=== PATIENT | female | born 1950 | race Caucasian/White ===

== ENCOUNTER 2016-09-05 04:46 | Emergency (ER) | payer MEDICARE, OTHER ==
[2016-09-05 05:04] VITALS: TEMP 99.2
[2016-09-05] MEDS ORDERED: ONDANSETRON INJ 4 MG/2 ML VIAL IV ONE (05:16)
[2016-09-05] MEDS ORDERED: SODIUM CHLORIDE 0.9% 1000ML 1,000 ML IVS ONE ×2 (05:16→06:47)
--- NOTE | 2016-09-05 05:20 | ED.PDOC ---
History of Present Illness - General Information Source: patient, RN notes reviewed, Vital Signs reviewed Exam Limitations: no limitations - History of Present Illness Initial Comments: Patient comes in via private vehicle w/ c/o N/V/D and R flank pain X 2 days. She is concerned she is getting dehydrated and may have a UTI. Fever to 100.2 at home. No chills. No abdominal pain. + dysuria. Tries to eat and drink but can 't keep anything down. Abdominal Pain Onset Location: other - Denies Timing/Duration: days - 2, constant Improving Factors: nothing Worsening Factors: eating Associated Symptoms: back pain - R flank, diarrhea, fever/chills, fatigue, nausea/vomiting <Mee Macdonald - Last Filed: 09/05/16 06:49> <Wm Bosch - Last Filed: 09/05/16 07:46> - General Chief Complaint: GI Problem Stated Complaint: n/v x2 days Time Seen by Provider: 09/05/16 05:09 Review of Systems - Review of Systems Constitutional: States: fever, malaise. Denies: chills EENTM: States: no symptoms reported Respiratory: States: no symptoms reported Cardiology: States: no symptoms reported Gastrointestinal/Abdominal: States: see HPI, diarrhea, nausea, vomiting. Denies : abdominal pain Genitourinary: States: see HPI, dysuria Musculoskeletal: States: back pain - R flank Skin: States: no symptoms reported Neurological: States: no symptoms reported All other Systems: No Change from Baseline <Mee Macdonald - Last Filed: 09/05/16 06:49> Past Medical History (General) - Patient Medical History Hx Dementia: No Hx Asthma: Yes Hx Cardiac Disorders: No Hx Diabetes: No Hx Gastroesophageal Reflux: Yes - IBS Surgical History: other - Vaccination History Hx Tetanus, Diphtheria Vaccination: No Hx Influenza Vaccination: No Hx Pneumococcal Vaccination: No - Social History Hx Tobacco Use: No Hx Depression: No <Mee Macdonald - Last Filed: 09/05/16 06:49> Family Medical History - Family History Father Living Status: Hx Family Hypertension: Yes <Mee Macdonald - Last Filed: 09/05/16 06:49> Physical Exam - Physical Exam General Appearance: Alert, Comfortable, No apparent distress, Well Developed, Well Groomed, Well Nourished Eyes, Ears, Nose, Throat Exam: other - dry mucus membranes Neck: non-tender, full range of motion, supple, normal inspection Respiratory: lungs clear, normal breath sounds, no respiratory distress, no accessory muscle use Cardiovascular/Chest: regular rate, rhythm, no edema, no gallop, no JVD, no murmur Gastrointestinal/Abdominal: soft, no organomegaly, no pulsatile mass, abnormal bowel sounds - hypoactive, tenderness - mild, generalized w/o guarding or rebound Extremity: normal range of motion, normal inspection Neurologic: alert, normal mood/affect, oriented x 3 Skin Exam: normal color, warm/dry Comments: Vital Signs 09/05/16 04:58 Temperature 99.2 F Pulse Rate [ 89 lefft] Respiratory 18 Rate Blood Pressure 131/85 [left] O2 Sat by Pulse 97 Oximetry <Mee Macdonald - Last Filed: 09/05/16 06:49> Progress - Progress Progress: 09/05/16 05:54 Patient reports nausea is a little better but now she is having reflux symptoms. Will given Protonix 40mg IV. Once her stomach is settles better with give potassium. 09/05/16 06:49 Patient is feeling better. Will give Potassium 40 meq PO and a second L of NS bolus <Mee Macdonald - Last Filed: 09/05/16 06:49> - Progress Progress: 09/05/16 07:32 09/05/16 05:16 IV Care:Saline Lock per Protoc QSHIFT 09/05/16 06:47 Sodium Chloride 0.9% 1000ML [Ns 1000 ml] 1,000 ml IVS ONCE Laboratory Results - last 24 hr 09/05/16 09/05/16 09/05/16 05:00 05:29 05:29 WBC 7.5 RBC 3.63 L Hgb 12.0 Hct 35.5 L MCV 97.8 MCH 33.0 H MCHC 33.7 RDW 13.7 Plt Count 332 MPV 7.5 Absolute Neuts (auto) 5.00 Absolute Lymphs (auto) 1.50 Absolute Monos (auto) 0.90 H Absolute Eos (auto) 0.10 Absolute Basos (auto) 0.10 Neutrophils % 65.9 Lymphocytes % 20.4 Monocytes % 11.4 H Eosinophils % 1.5 Basophils % 0.8 Sodium 144 Potassium 3.0 L Chloride 108 Carbon Dioxide 25 Anion Gap 14.0 BUN 10 Creatinine 0.81 BUN/Creatinine Ratio 12.3 Random Glucose 94 Serum Osmolality 285.6 Calcium 8.7 Total Bilirubin 0.8 AST 19 ALT 12 Alkaline Phosphatase 44 Serum Total Protein 6.1 L Albumin 3.9 Globulin 2.2 L Albumin/Globulin Ratio 1.8 Urine Color Yellow Urine Appearance Clear Urine pH 7.5 Ur Specific [place] 1.015 Urine Protein 30 Urine Glucose (UA) Negative Urine Ketones 15 H Urine Blood Negative Urine Nitrite Negative Urine Bilirubin Negative Urine Urobilinogen 0.2 Ur Leukocyte Esterase Negative Urine RBC 0 Urine WBC 0-1 Ur Epithelial Cells 0 Urine Bacteria Rare Urine Mucus Trace <Wm Bosch - Last Filed: 09/05/16 07:46> Departure <Mee Macdonald - Last Filed: 09/05/16 06:49> - Departure Time of Disposition: 07:35 Diet: other - AVOID GREASY,SPICY, DAIRY FOODS UNTI BETTER;B-banana;Rice; Applesauce;[place] (BRAT diet) until better <Wm Bosch R - Last Filed: 09/05/16 07:46> - Departure Clinical Impression: Hypokalemia, gastrointestinal losses Nausea & vomiting Qualifiers: Vomiting type: unspecified Vomiting Intractability: non-intractable Qualified Code(s): R11.2 - Nausea with vomiting, unspecified Back pain Qualifiers: Back pain location: low back pain Back pain laterality: left Sciatica presence : without sciatica Qualified Code(s): M54.5 - Low back pain Disposition: Discharge to Home or Self Care Condition: Fair Departure Forms: ED Discharge - Pt. Copy, Patient Portal Self Enrollment Instructions: DI for Nausea -- Adult, Nausea and Vomiting-Adult Referrals: Aristides Arana MD [Active Staff] - 1-2 Weeks Prescriptions: Sucralfate Tab [Carafate Tab] 1 gm PO Q6HRS #60 tab Promethazine Tab [Phenergan Tablet] 25 mg PO .Q4H PRN #20 tab PRN Reason: Nausea Home Medications: Ambulatory Orders Escitalopram Oxalate [Lexapro] 20 mg PO BEDTIME 09/05/16 Gabapentin [Neurontin] 600 mg PO TID 09/05/16 Omeprazole [PriLOSEC Cap] 20 mg PO DAILY 09/05/16 Promethazine Tab [Phenergan Tablet] 25 mg PO .Q4H PRN #20 tab 09/05/16 Sucralfate Tab [Carafate Tab] 1 gm PO Q6HRS #60 tab 09/05/16 raNITIdine HCL [Zantac] 150 mg PO DAILY 09/05/16 Additional Instructions: RETURN TO EMERGENCY ROOM NEEDED,FOLLOW UP WITH PRIMARY MD 09/06/2016 call for appointment if needed
[2016-09-05] MEDS ORDERED: PANTOPRAZOLE SODIUM IV 40 MG VIAL IV ONE (05:55)
[2016-09-05] MEDS ORDERED: POTASSIUM CHLORIDE 20 MEQ TAB PO ONE (06:47)
[2016-09-05 07:17] VITALS: O2SAT 98
[2016-09-05] MEDS ORDERED: ORPHENADRINE CITRATE 30 MG/ML AMP IV ONE (07:25)
[2016-09-05] MEDS ORDERED: SUCRALFATE 1 GM/10 ML 1 GM UD PO ONE (07:38)
[2016-09-05 08:41] VITALS: BP 131/55
== END 2016-09-05 08:27 | disposition home or self-care (01) ==
LOC: ER 04:46
DX: E87.6 Hypokalemia (principal); R11.2 Nausea with vomiting, unspecified; M54.5 Low back pain; K58.0 Irritable bowel syndrome with diarrhea; K21.9 Gastro-esophageal reflux disease without esophagitis; J45.909 Unspecified asthma, uncomplicated; Z79.899 Other long term (current) drug therapy
CPT/HCPCS: 36415; 80053; 81001; 85025; J2360; J2405; J7030

== ENCOUNTER → 2017-01-13 | Outpatient (CLI) | payer MEDICARE, OTHER | LOC: LAB.O 11:34 | PROVIDERS: ATTEND Family Medicine | DX: D51.3 Other dietary vitamin B12 deficiency anemia (principal); R53.83 Other fatigue; D50.8 Other iron deficiency anemias; M79.1 Myalgia ==

== ENCOUNTER → 2017-02-19 | Outpatient (CLI) | payer MEDICARE, OTHER | END | disposition home or self-care (01) | LOC: GMAL 10:22 | PROVIDERS: ATTEND Family Medicine | DX: D51.3 Other dietary vitamin B12 deficiency anemia (principal) ==

== ENCOUNTER → 2018-11-19 | Outpatient (CLI) | payer MEDICARE, OTHER | LOC: GMAL 15:03 | PROVIDERS: ATTEND Family Medicine | DX: D51.3 Other dietary vitamin B12 deficiency anemia (principal); I10 Essential (primary) hypertension; D50.8 Other iron deficiency anemias; E06.3 Autoimmune thyroiditis; E55.9 Vitamin D deficiency, unspecified; Z79.899 Other long term (current) drug therapy ==

== ENCOUNTER → 2018-12-30 | Outpatient (CLI) | payer MEDICARE, OTHER | END | disposition home or self-care (01) | LOC: GMAL 15:34 | PROVIDERS: ATTEND Family Medicine | DX: E83.42 Hypomagnesemia (principal) ==